=== PATIENT | female | born 1995 | race Caucasian/White ===

== ENCOUNTER 2023-02-01 15:19 | Inpatient (IN) | payer BC ==
[2023-02-01] MEDS ORDERED: Sodium Chloride 0.9% 10 ML Syringe FLUSH PRN (18:37)
[2023-02-01] MEDS ORDERED: Nalbuphine 10 MG/0.5 ML Syringe IVPUSH PRN (18:37)
[2023-02-01] MEDS ORDERED: Ondansetron 4 MG/2 ML SDV IVPUSH PRN (18:37)
[2023-02-01] MEDS ORDERED: Ampicillin 2 GM in Sodium Chloride 0.9% 100 ML IV ONE (19:00)
[2023-02-01] MEDS ORDERED: diphenhydrAMINE 50 MG/ML SDV IVPUSH PRN (19:52)
[2023-02-01] MEDS ORDERED: Bupivacaine/fentaNYL/NS 100 ML Bag EPIDUR PRN (19:52)
[2023-02-01] MEDS ORDERED: ePHEDrine 50 MG/ML SDV IVPUSH PRN (19:52)
[2023-02-01] MEDS: Lactated Ringers 1,000 ML IV SCH ×3 (19:58→23:10)
[2023-02-01] MEDS: fentaNYL 100 MCG/2 ML SDV EPIDUR PRN ×2 (20:49→22:56)
[2023-02-01] MEDS ORDERED: Sodium Chloride 0.9% 10 ML Syringe FLUSH SCH (21:00)
[2023-02-01] MEDS ORDERED: Dexmedetomidine 200 MCG/2 ML SDV ONE (22:30)
[2023-02-01] MEDS: Ampicillin 1 GM in Sodium Chloride 0.9% 100 ML IV SCH (23:47)
[2023-02-02] MEDS ORDERED: Terbutaline 1 MG/ML SDV SUBCUT ONE (00:30)
[2023-02-02] MEDS ORDERED: Terbutaline 1 MG/ML SDV ONE (00:31)
[2023-02-02] MEDS: Oxytocin/Lactated Ringers 10 UNIT/1,000 ML BAG IV SCH ×2 (01:17→03:07)
[2023-02-02] MEDS ORDERED: Lidocaine 1.5% with EPINEPHrine 1:200,000 5 ML Amp ONE (02:00)
[2023-02-02] MEDS ORDERED: Lidocaine 1% 10 ML MDV ONE (02:00)
[2023-02-02] MEDS ORDERED: Sodium Bicarbonate 8.4% 50 MEQ/50 ML SDV ONE (02:00)
[2023-02-02] MEDS ORDERED: Methylergonovine 0.2 MG/ML SDV IM ONE (02:45)
[2023-02-02] MEDS: Ampicillin 1 GM in Sodium Chloride 0.9% 100 ML IV SCH (03:15)
[2023-02-02] MEDS ORDERED: Acetaminophen 325 MG Tab PO PRN (04:45)
[2023-02-02] MEDS ORDERED: Witch Hazel Medicated Pads 40/Jar TOP PRN (04:45)
[2023-02-02] MEDS ORDERED: Docusate Sodium 100 MG Cap PO PRN (04:45)
[2023-02-02] MEDS ORDERED: Benzocaine/Menthol 20%-0.5% Spray 78 GM Cannister TOP PRN (04:45)
[2023-02-02] MEDS ORDERED: Hydrocortisone Acetate 25 MG Supp RECTAL PRN (04:45)
[2023-02-02] MEDS ORDERED: Magnesium Hydroxide 400 MG/5 ML Susp 30 ML Cup PO PRN (04:45)
[2023-02-02] MEDS ORDERED: Oxytocin/Lactated Ringers 10 UNIT/1,000 ML BAG IV SCH (04:45)
[2023-02-02] MEDS: Ibuprofen 600 MG Tab PO PRN ×2 (05:24→20:13)
[2023-02-02] MEDS: Prenatal Multivitamin with Calcium/Folic Acid/Iron Tab PO SCH (15:56)
[2023-02-03] MEDS: Prenatal Multivitamin with Calcium/Folic Acid/Iron Tab PO SCH (13:15)
[2023-02-03] MEDS ORDERED: Ferrous Sulfate 324 MG Tab.EC PO SCH (17:00)
== END 2023-02-03 13:45 | disposition home or self-care (01) | DRG 560 ==
LOC: JD.OBCHECK 15:19 → JD.OB 15:22 → JD.OBCHECK 22:49 → OBSVTOIN 02-02 01:15 → JD.OB 02-02 01:16
PROVIDERS: ADMIT Obstetrics & Gynecology; ATTEND Obstetrics & Gynecology
PROC: 00HU33Z Insertion of Infusion Device into Spinal Canal, Percutaneous Approach (ICD-10-PCS; principal; 2023-02-02)
PROC: 0UQMXZZ Repair Vulva, External Approach (ICD-10-PCS; principal; 2023-02-02)
PROC: 3E0R3BZ Introduction of Anesthetic Agent into Spinal Canal, Percutaneous Approach (ICD-10-PCS; principal; 2023-02-02)
PROC: 0KQM0ZZ Repair Perineum Muscle, Open Approach (ICD-10-PCS; principal; 2023-02-02)
PROC: 10D07Z6 Extraction of Products of Conception, Vacuum, Via Natural or Artificial Opening (ICD-10-PCS; principal; 2023-02-02)
DX: O42.02 Full-term premature rupture of membranes, onset of labor within 24 hours of rupture (principal); O70.1 Second degree perineal laceration during delivery; O72.1 Other immediate postpartum hemorrhage; O90.81 Anemia of the puerperium; D62 Acute posthemorrhagic anemia; O69.81X0 Labor and delivery complicated by cord around neck, without compression, not applicable or unspecified; O70.0 First degree perineal laceration during delivery; O76 Abnormality in fetal heart rate and rhythm complicating labor and delivery; O99.824 Streptococcus B carrier state complicating childbirth; Z3A.39 39 weeks gestation of pregnancy; Z37.0 Single live birth; Z90.49 Acquired absence of other specified parts of digestive tract
CPT/HCPCS: 36415; 51702; 59025; 59409; 85025; 86592; 86850; 86900; 86901; A9270-GY; J0290; J2210; J2405; J2590; J3010; J3490; J7120